=== PATIENT | male | born 1960 | race African-American/Black ===

== ENCOUNTER 2016-12-16 13:57 | Emergency (ER) | payer OTHER | END 2016-12-16 13:58 | disposition home or self-care (01) | LOC: CED 13:57 | DX: M25.561 Pain in right knee (principal); G89.29 Other chronic pain; F17.210 Nicotine dependence, cigarettes, uncomplicated | CPT/HCPCS: 99282 ==

== ENCOUNTER 2017-02-05 13:05 | Emergency (ER) | payer OTHER | END 2017-02-05 14:08 | disposition home or self-care (01) | LOC: CED 13:05 | DX: S94.21XA Injury of deep peroneal nerve at ankle and foot level, right leg, initial encounter (principal); F17.200 Nicotine dependence, unspecified, uncomplicated; X58.XXXA Exposure to other specified factors, initial encounter; Y92.9 Unspecified place or not applicable | CPT/HCPCS: 99283 ==